=== PATIENT | male | born 1980 | race Caucasian/White ===

== ENCOUNTER 2019-04-14 16:41 | Emergency (ER) | payer OTHER ==
[~2019-04-14] VITALS: Ht 175.2 cm; Wt 77.1 kg
[~2019-04-14 16:41] MED LIST: ANAPROX DS550 MG PO; CLEOCIN HCL150 MG PO; VICODIN 5/500 505 MG PO; VICODIN ES 7501 TAB PO; ZITHROMAX TRI-500 MG PO
[2019-04-14] MEDS ORDERED: ZOFRAN4 MG PO (17:13)
[2019-04-14] MEDS ORDERED: ROPINIROLE HYD0.5 MG PO (17:13)
== END 2019-04-14 17:23 | disposition home or self-care (01) ==
LOC: ED 16:41
DX: F19.10 Other psychoactive substance abuse, uncomplicated (principal); R42 Dizziness and giddiness; R11.0 Nausea; R50.9 Fever, unspecified; F14.90 Cocaine use, unspecified, uncomplicated; F11.10 Opioid abuse, uncomplicated; F17.200 Nicotine dependence, unspecified, uncomplicated

== ENCOUNTER 2019-06-10 12:37 | Emergency (ER) | payer OTHER ==
[~2019-06-10] VITALS: Ht 175.2 cm; Wt 83.9 kg
[~2019-06-10 12:37] MED LIST changes: +ROPINIROLE HYD0.5 MG PO; +ZOFRAN4 MG PO
== END 2019-06-10 13:27 | disposition home or self-care (01) ==
LOC: ED 12:37
DX: K12.0 Recurrent oral aphthae (principal); F15.10 Other stimulant abuse, uncomplicated; F14.10 Cocaine abuse, uncomplicated; F11.10 Opioid abuse, uncomplicated; F17.200 Nicotine dependence, unspecified, uncomplicated; Z79.899 Other long term (current) drug therapy

== ENCOUNTER 2019-11-16 20:48 | Emergency (ER) | payer OTHER ==
[~2019-11-16] VITALS: Ht 175.2 cm; Wt 81.6 kg
[2019-11-16 21:58] LABS: BASO % 0.1 % (0.0-1.0); EOS # 0.1 10*3/uL (0.0-0.4); EOS % 0.8 % (1.0-4.0); HEMATOCRIT 47.3 % (42.0-52.0); LYMPH # 0.9 10*3/uL (1.3-4.4); LYMPH % 8.4 % (27.0-41.0); MEAN CELL VOLUME 91.8 fl (80.0-94.0); MEAN CORPUSCULAR HGB 30.7 pg (27.0-31.0); MEAN CORPUSCULAR HGB CONC 33.4 g/dl (33.0-37.0); MEAN PLATELET VOLUME 11.5 fl (9.6-12.3); MONO # 0.7 10*3/uL (0.1-1.0); MONO % 7.2 % (3.0-9.0); NEUT # 8.6 10*3/uL (2.3-7.9); NEUT % 83.2 % (47.0-73.0); PLATELET COUNT AUTOMATED 229 10*3/uL (130-400); RED BLOOD COUNT 5.15 10*6/uL (4.50-5.90); RED CELL DISTRI WIDTH 12.4 % (0-14.5); WHITE BLOOD COUNT 10.3 10*3/uL (4.8-10.8)
[2019-11-16 22:13] LABS: ALBUMIN 3.5 gm/dl (3.1-4.5); ALKALINE PHOSPHATASE 56 U/L (45-117); BUN 11 mg/dl (7-24); CHLORIDE 107 mmol/L (98-107); CREATININE 1.25 mg/dL (0.70-1.30); POTASSIUM 4.2 mmol/L (3.5-5.1); SGOT/AST 61 IU/L (3-35); SGPT/ALT 84 U/L (12-78); SODIUM 141 mmol/L (136-145); TOTAL PROTEIN 7.6 gm/dL (6.4-8.2)
[2019-11-16 22:22] LABS: THYROID STIM HORMONE (HS) 0.722 uIU/ml (0.358-4.75)
[2019-11-16 22:28] LABS: ACETAMINOPHEN (TYLENOL) < 5.0 ug/ml (10-30); ETHYL ALCOHOL < 3.0 mg/dl (<3)
== END 2019-11-17 08:33 | disposition home or self-care (01) ==
LOC: ED 20:48
PROVIDERS: Family Medicine
DX: F19.90 Other psychoactive substance use, unspecified, uncomplicated (principal); F17.200 Nicotine dependence, unspecified, uncomplicated; Z79.899 Other long term (current) drug therapy

== ENCOUNTER 2019-11-25 14:26 | Emergency (ER) | payer OTHER ==
[~2019-11-25] VITALS: Ht 175.2 cm; Wt 79.4 kg
[2019-11-25] MEDS ORDERED: AUGMENTIN 875875 MG PO (14:58)
[2019-11-25] MEDS ORDERED: ZYRTEC10 M3 PO (14:58)
[2019-11-25] MEDS ORDERED: FLONASE ALLERG9.9 ML NAS (14:58)
== END 2019-11-25 15:31 | disposition home or self-care (01) ==
LOC: ED 14:26
DX: J01.90 Acute sinusitis, unspecified (principal); F17.200 Nicotine dependence, unspecified, uncomplicated